=== PATIENT | female | born 1965 | race Caucasian/White ===

== ENCOUNTER 2018-07-19 14:47 | Inpatient (IN) ==
[2018-07-19] MEDS ORDERED: methylPREDNISolone SOD SUC 125 MG/2 ML VIAL IV STA (15:04)
[2018-07-19] MEDS ORDERED: ALBUTEROL NEB SOLN 5 MG/ML 20 ML/BOTTLE RESP TX SCH (15:30)
[2018-07-19 15:41] LABS: Basophils # 0.1 10*3/uL (0.0-0.2); Basophils % 0.8 % (0.0-0.8); Eosinophils # 0.2 10*3/uL (0.0-0.87); Eosinophils % 2.6 % (0.00-10.9); Hematocrit 43.2 VOL% (35.7-47.0); Hemoglobin 14.6 GM/DL (12.0-16.0); Immature Granulocytes % 0.1 %; Immature Granulocytes Absolute 0.01 #; Lymphocytes # 3.4 10*3/uL (1.4-4.0); Lymphocytes % 47.8 % (21.3-54.2); Mean Corpuscular HGB Conc 33.8 GM/DL (32-36); Mean Corpuscular Hemoglobin 36 PG (27-34); Mean Corpuscular Volume 106.4 FL (87-102); Mean Platelet Volume 9.7 FL (9.6-12.0); Monocytes # 0.7 10*3/uL (0.11-0.8); Monocytes % 9.3 % (1.7-12.7); Neutrophils # 2.8 10*3/uL (1.4-7.4); Neutrophils % 39.4 % (38.7-73.9); Platelet Count 250 T/CUMM (130-400); Red Blood Count 4.06 MC/CUMM (3.8-5.5); Red Cell Distribution Width 12.3 % (9.3-17.3); White Blood Count 7.2 T/CUMM (4-12)
[2018-07-19 16:08] LABS: Albumin 4.4 G/DL (3.4-5.0); Bilirubin,Total 0.5 MG/DL (0.2-1.0); Calcium 9.8 MG/DL (8.5-10.1); Osmolality,Calculated 277.5 MOS/KG (273-304); Potassium 3.9 MMOL/L (3.5-5.1); Total Protein 8.3 G/DL (6.4-8.3)
[2018-07-19] MEDS ORDERED: MORPHINE 4 MG/1 ML VIAL IV PRN (19:49)
[2018-07-19] MEDS ORDERED: SODIUM CHLORIDE 0.9% 1,000 ML IV SCH (19:49)
[2018-07-19] MEDS ORDERED: ALBUTEROL 2.5 MG/3 ML NEB RESP TX PRN (19:49)
[2018-07-19] MEDS ORDERED: ONDANSETRON 4 MG/2 ML VIAL IV PRN (19:49)
[2018-07-19] MEDS ORDERED: ACETAMINOPHEN 325 MG TABLET PO PRN (19:49)
[2018-07-19] MEDS: DOCUSATE SODIUM 100 MG CAPSULE PO SCH (20:20)
[2018-07-19] MEDS: ALBUTEROL/IPRATROPIUM 3 ML NEB RESP TX SCH ×2 (20:25→22:34)
[2018-07-19] MEDS ORDERED: ENOXAPARIN 40 MG/0.4 ML SYRINGE SUBCUT SCH (21:00)
[2018-07-19] MEDS ORDERED: ZALEPLON 5 MG CAPSULE PO SCH (21:30)
[2018-07-19] MEDS: methylPREDNISolone SOD SUC 40 MG/1 ML VIAL IV SCH (22:40)
[2018-07-20] MEDS: ALBUTEROL/IPRATROPIUM 3 ML NEB RESP TX SCH ×2 (02:28→08:05)
[2018-07-20] MEDS: methylPREDNISolone SOD SUC 40 MG/1 ML VIAL IV SCH (06:04)
[2018-07-20 06:05] LABS: Hematocrit 37.5 VOL% (35.7-47.0); Hemoglobin 12.9 GM/DL (12.0-16.0); Immature Granulocytes % 0.8 %; Immature Granulocytes Absolute 0.08 #; Lymphocytes # 0.7 10*3/uL (1.4-4.0); Lymphocytes % 6.9 % (21.3-54.2); Mean Corpuscular HGB Conc 34.4 GM/DL (32-36); Mean Corpuscular Hemoglobin 35 PG (27-34); Mean Platelet Volume 10.3 FL (9.6-12.0); Monocytes # 0.2 10*3/uL (0.11-0.8); Monocytes % 1.9 % (1.7-12.7); NRBC # 0.02 10*3/uL; Neutrophils # 9.1 10*3/uL (1.4-7.4); Neutrophils % 90.4 % (38.7-73.9); Platelet Count 233 T/CUMM (130-400); Red Blood Count 3.64 MC/CUMM (3.8-5.5); Red Cell Distribution Width 12.4 % (9.3-17.3)
[2018-07-20 06:28] LABS: Albumin 3.7 G/DL (3.4-5.0); Bilirubin,Total 0.4 MG/DL (0.2-1.0); Calcium 9.4 MG/DL (8.5-10.1); Osmolality,Calculated 283.3 MOS/KG (273-304); Potassium 3.6 MMOL/L (3.5-5.1); Total Protein 7.3 G/DL (6.4-8.3)
[2018-07-20] MEDS: DOCUSATE SODIUM 100 MG CAPSULE PO SCH (08:36)
[2018-07-20] MEDS ORDERED: PANTOPRAZOLE 40 MG TABLET PO SCH (09:00)
[2018-07-20] MEDS ORDERED: Umeclidinium Brm/Vilanterol Tr [Anoro Ellipta] INH SCH (09:00)
[2018-07-20] MEDS ORDERED: PNEUMOCOCCAL VACCINE (23 VALENT) 0.5 ML VIAL IM ONE (09:00)
[2018-07-20 12:10] VITALS: BP 149/72
[2018-07-20] MEDS ORDERED: VERAPAMIL SR 120 MG TABLET PO STA (12:37)
== END 2018-07-20 15:07 | disposition home or self-care (01) | DRG 918 ==
LOC: N.ED 14:47 → N.EDINP 18:19 → N.4E 18:50
PROVIDERS: ADMIT Family Medicine; ATTEND Family Medicine

== ENCOUNTER 2019-05-11 09:28 | Inpatient (IN) ==
[2019-05-11] MEDS ORDERED: ONDANSETRON 4 MG/2 ML VIAL IV STA (09:55)
[2019-05-11] MEDS ORDERED: DICYCLOMINE 20 MG/2 ML AMP IM ONE (09:55)
[2019-05-11] MEDS ORDERED: METOCLOPRAMIDE 10 MG/2 ML VIAL IV STA (09:55)
[2019-05-11] MEDS ORDERED: SODIUM CHLORIDE 0.9% 1,000 ML IV STA (09:55)
[2019-05-11] MEDS ORDERED: metroNIDAZOLE INJ 500 MG in PREMIX 1 EACH IV STA (09:55)
[2019-05-11 11:14] LABS: Apearance,Urine Slightly Hazy (Clear); Bacteria,Urine Occasional /HPF (Few); Bilirubin,Urine Negative (Negative); Blood, Urine Small mg/dL (Negative); Glucose,Urine (UA) Negative (Negative); Ketones,Urine 80 mg/dL (Negative); Mucus,Urine Occasional /LPF (Occasional); Nitrite,Urine Negative (Negative); Protein,Urine 30 MG/DL; RBC,Urine 2 /HPF (0-4); Squamous Epithelial Cell,Urine Few /HPF (0-10); Urine Color Yellow (Yellow); Urine Specific Gravity 1.018 (1.001-1.035); Urine Urobilinogen < 2.0 EU/DL (0.2-1.0); WBC,Urine 2 /HPF (0-6)
[2019-05-11 11:32] LABS: Basophils # 0.1 10*3/uL (0.0-0.2); Basophils % 0.7 % (0.0-0.8); Eosinophils % 0.1 % (0.00-10.9); Hematocrit 43.8 VOL% (35.7-47.0); Hemoglobin 14.6 GM/DL (12.0-16.0); Immature Granulocytes % 0.4 %; Immature Granulocytes Absolute 0.03 #; Lymphocytes # 1.1 10*3/uL (1.4-4.0); Lymphocytes % 14.8 % (21.3-54.2); Mean Corpuscular HGB Conc 33.3 GM/DL (32-36); Mean Corpuscular Volume 105.3 FL (87-102); Mean Platelet Volume 9.5 FL (9.6-12.0); Monocytes % 20.3 % (1.7-12.7); Neutrophils % 63.7 % (38.7-73.9); Platelet Count 186 T/CUMM (130-400); Red Blood Count 4.16 MC/CUMM (3.8-5.5); Red Cell Distribution Width 13.3 % (9.3-17.3); White Blood Count 7.2 T/CUMM (4-12)
[2019-05-11 11:57] LABS: Band Neutrophils 39 % (0-10); Lymphocytes 16 % (20-55); Segmented Neutrophils 34 % (50-85); Total Cells Counted 100
[2019-05-11 11:58] LABS: Anisocytosis Slight; Macrocytosis 1+; Platelet Estimate Normal
[2019-05-11 11:59] LABS: Smudge Cells Few
[2019-05-11 12:10] LABS: Alanine Aminotransferase 71 U/L (13-56); Albumin 3.3 G/DL (3.4-5.0); Alkaline Phosphatase 91 U/L (45-117); Amylase 49 U/L (25-115); Aspartate Amino Transferase 87 U/L (0-37); Bilirubin,Total < 0.39 MG/DL (0.2-1.0); Blood Urea Nitrogen 6 MG/DL (7-18); Calcium 8.8 MG/DL (8.5-10.1); Glucose 79 MG/DL (74-106); Osmolality,Calculated 266.1 MOS/KG (273-304); Total Protein 7.3 G/DL (6.4-8.3); Troponin I < 0.015 NG/ML (0.00-0.045)
[2019-05-11] MEDS ORDERED: ACETAMINOPHEN 500 MG TABLET PO PRN ×2 (13:22→18:04)
[2019-05-11] MEDS ORDERED: VERAPAMIL 120 MG TABLET PO ONE (13:22)
[2019-05-11] MEDS ORDERED: ONDANSETRON 4 MG/2 ML VIAL IV PRN (13:22)
[2019-05-11] MEDS ORDERED: SODIUM CHLORIDE 0.45% 1,000 ML IV SCH (15:00)
[2019-05-11] MEDS: CIPROFLOXACIN INJ 400 MG in PREMIX 1 EACH IV SCH ×2 (15:16→21:55)
[2019-05-11] MEDS: metroNIDAZOLE INJ 500 MG in PREMIX 1 EACH IV SCH ×2 (17:07→23:37)
[2019-05-11] MEDS: SODIUM CHLORIDE 0.9% 1,000 ML IV SCH (17:07)
[2019-05-11] MEDS ORDERED: METOPROLOL TARTRATE 25 MG TABLET PO ONE (17:52)
[2019-05-11] MEDS: ALBUTEROL/IPRATROPIUM 3 ML NEB RESP TX SCH (18:54)
[2019-05-11] MEDS: METOPROLOL TARTRATE 25 MG TABLET PO SCH (20:56)
[2019-05-11] MEDS ORDERED: MONTELUKAST 10 MG TABLET PO SCH (21:00)
[2019-05-11] MEDS: MELATONIN 3 MG TABLET PO SCH (21:55)
[2019-05-12] MEDS: ALBUTEROL/IPRATROPIUM 3 ML NEB RESP TX SCH ×4 (01:08→19:03)
[2019-05-12 04:56] LABS: Basophils % 0.6 % (0.0-0.8); Eosinophils % 0.6 % (0.00-10.9); Hematocrit 37.3 VOL% (35.7-47.0); Hemoglobin 12.3 GM/DL (12.0-16.0); Immature Granulocytes % 0.6 %; Immature Granulocytes Absolute 0.04 #; Lymphocytes # 1.9 10*3/uL (1.4-4.0); Lymphocytes % 29.4 % (21.3-54.2); Mean Corpuscular Volume 106.9 FL (87-102); Mean Platelet Volume 10.2 FL (9.6-12.0); Monocytes % 20.8 % (1.7-12.7); Platelet Count 178 T/CUMM (130-400); Red Blood Count 3.49 MC/CUMM (3.8-5.5); Red Cell Distribution Width 13.3 % (9.3-17.3); White Blood Count 6.4 T/CUMM (4-12)
[2019-05-12] MEDS: metroNIDAZOLE INJ 500 MG in PREMIX 1 EACH IV SCH ×3 (05:11→17:00)
[2019-05-12 05:28] LABS: Albumin 2.7 G/DL (3.4-5.0); Bilirubin,Total 0.4 MG/DL (0.2-1.0); Calcium 8.6 MG/DL (8.5-10.1); Osmolality,Calculated 268.8 MOS/KG (273-304); Total Protein 6.1 G/DL (6.4-8.3)
[2019-05-12 05:47] LABS: Band Neutrophils 2 % (0-10); Eosinophils 4 % (0-10); Lymphocytes 28 % (20-55); Platelet Estimate Normal; Segmented Neutrophils 46 % (50-85); Total Cells Counted 100
[2019-05-12 05:48] LABS: Anisocytosis 3+; Atypical Lymphocytes 1+; Macrocytosis 3+; Microcytosis 1+; Reactive Lymphocytes 1+
[2019-05-12] MEDS: CIPROFLOXACIN INJ 400 MG in PREMIX 1 EACH IV SCH ×3 (06:39→22:00)
[2019-05-12] MEDS ORDERED: Fluticasone Furoate [Arnuity Ellipta] 1 PUFF INH SCH (09:00)
[2019-05-12] MEDS ORDERED: Umeclidinium-Vilanterol [Anoro Ellipta] 1 PUFF INH SCH (09:00)
[2019-05-12] MEDS: MONTELUKAST 10 MG TABLET PO SCH (09:43)
[2019-05-12] MEDS: METOPROLOL TARTRATE 25 MG TABLET PO SCH ×2 (09:43→20:51)
[2019-05-12] MEDS: SODIUM CHLORIDE 0.9% 1,000 ML IV SCH (09:43)
[2019-05-12] MEDS: VERAPAMIL SR 120 MG TABLET PO SCH (09:43)
[2019-05-12] MEDS: Umeclidinium-Vilanterol [Anoro Ellipta] 1 PUFF INH SCH (10:43)
[2019-05-12] MEDS: Fluticasone Furoate [Arnuity Ellipta] 1 PUFF INH SCH (10:44)
[2019-05-12] MEDS ORDERED: MAGNESIUM SULF RIDER 2 GM in PREMIX 1 EACH IV ONE (16:09)
[2019-05-12] MEDS: MELATONIN 3 MG TABLET PO SCH (20:51)
[2019-05-13] MEDS: metroNIDAZOLE INJ 500 MG in PREMIX 1 EACH IV SCH ×5 (00:04→22:53)
[2019-05-13] MEDS: ALBUTEROL/IPRATROPIUM 3 ML NEB RESP TX SCH ×4 (01:24→20:12)
[2019-05-13] MEDS: SODIUM CHLORIDE 0.9% 1,000 ML IV SCH ×2 (01:57→20:09)
[2019-05-13] MEDS: CIPROFLOXACIN INJ 400 MG in PREMIX 1 EACH IV SCH ×2 (06:24→21:24)
[2019-05-13 06:33] LABS: Calcium 8.4 MG/DL (8.5-10.1); Osmolality,Calculated 277.3 MOS/KG (273-304)
[2019-05-13] MEDS: MONTELUKAST 10 MG TABLET PO SCH (09:46)
[2019-05-13] MEDS: Umeclidinium-Vilanterol [Anoro Ellipta] 1 PUFF INH SCH (09:47)
[2019-05-13] MEDS: Fluticasone Furoate [Arnuity Ellipta] 1 PUFF INH SCH (09:47)
[2019-05-13] MEDS: METOPROLOL TARTRATE 25 MG TABLET PO SCH ×2 (09:47→21:30)
[2019-05-13] MEDS: POTASSIUM CHLORIDE 20 MEQ TABLET PO SCH (10:56)
[2019-05-13] MEDS: VERAPAMIL SR 120 MG TABLET PO SCH (10:56)
[2019-05-13] MEDS: MELATONIN 3 MG TABLET PO SCH (21:26)
[2019-05-14] MEDS: ALBUTEROL/IPRATROPIUM 3 ML NEB RESP TX SCH ×3 (00:31→13:00)
[2019-05-14] MEDS: metroNIDAZOLE INJ 500 MG in PREMIX 1 EACH IV SCH ×2 (05:00→10:55)
[2019-05-14 05:13] LABS: Calcium 8.7 MG/DL (8.5-10.1)
[2019-05-14] MEDS: VERAPAMIL SR 120 MG TABLET PO SCH (08:32)
[2019-05-14] MEDS: POTASSIUM CHLORIDE 20 MEQ TABLET PO SCH (08:33)
[2019-05-14] MEDS: METOPROLOL TARTRATE 25 MG TABLET PO SCH (08:33)
[2019-05-14] MEDS: MONTELUKAST 10 MG TABLET PO SCH (08:33)
[2019-05-14] MEDS: CIPROFLOXACIN INJ 400 MG in PREMIX 1 EACH IV SCH (08:34)
[2019-05-14] MEDS: Fluticasone Furoate [Arnuity Ellipta] 1 PUFF INH SCH (08:36)
[2019-05-14] MEDS: Umeclidinium-Vilanterol [Anoro Ellipta] 1 PUFF INH SCH (08:36)
[2019-05-14] MEDS ORDERED: LOPERAMIDE 2 MG CAPSULE PO PRN (08:51)
[2019-05-14] MEDS: SODIUM CHLORIDE 0.9% 1,000 ML IV SCH (10:53)
[2019-05-14 16:11] VITALS: BP 108/71
== END 2019-05-14 16:30 | disposition home or self-care (01) | DRG 372 ==
LOC: N.EDINP 09:28 → N.ED 09:28 → N.2E 14:30
PROVIDERS: ADMIT Family Medicine; ATTEND Family Medicine

== ENCOUNTER 2022-01-24 11:45 | Inpatient (IN) ==
[2022-01-24] MEDS ORDERED: SODIUM CHLORIDE 0.9% 1,000 ML IV STA ×3 (11:53→13:41)
[2022-01-24] MEDS ORDERED: NOREPINEPHRINE 8 MG in SODIUM CHLORIDE 0.9% 242 ML IV PRN (11:56)
[2022-01-24] MEDS: NOREPINEPHRINE 8 MG in SODIUM CHLORIDE 0.9% 242 ML IV PRN ×3 (11:58→23:49)
[2022-01-24 12:15] LABS: Arterial Base Excess iSTAT -28 MMOL/L (-2.5-2.5); Arterial Bicarbonate iSTAT 8.2 MMOL/L (20-26); Arterial O2 Saturation iSTAT 100 % (95-100); Arterial PCO2 iSTAT 61 MM HG (35-48); Arterial PO2 iSTAT 502 MM HG (80-95); Arterial Total CO2 iSTAT 10 MMO/L (23-27); Arterial pH iSTAT 6.732 (7.35-7.45)
[2022-01-24] MEDS ORDERED: SODIUM BICARBONATE 50 MEQ/50 ML VIAL IV ONE ×5 (12:18→18:41)
[2022-01-24 12:23] LABS: Basophils % 0.3 % (0.0-0.8); Eosinophils % 0.1 % (0.00-10.9); Hematocrit 39.4 VOL% (35.7-47.0); Hemoglobin 12.1 GM/DL (12.0-16.0); Immature Granulocytes % 5.9 %; Immature Granulocytes Absolute 0.59 #; Lymphocytes # 3.4 10*3/uL (1.4-4.0); Lymphocytes % 33.5 % (21.3-54.2); Mean Corpuscular HGB Conc 30.7 GM/DL (32-36); Mean Corpuscular Volume 126.3 FL (87-102); Mean Platelet Volume 11.4 FL (9.6-12.0); Monocytes % 5.5 % (1.7-12.7); NRBC # 0.11 10*3/uL; Neutrophils % 54.7 % (38.7-73.9); Platelet Count 121 T/CUMM (130-400); Red Blood Count 3.12 MC/CUMM (3.8-5.5); Red Cell Distribution Width 14.4 % (9.3-17.3); White Blood Count 10.1 T/CUMM (4-12)
[2022-01-24] MEDS ORDERED: SODIUM BICARB INJ 100 MEQ in DEXTROSE 5% 1,000 ML IV SCH (12:30)
[2022-01-24 12:35] LABS: Amorphous Crystals,Urine Occasional /HPF (Few); Bacteria,Urine Occasional /HPF (Few); Hyaline Casts,Urine 53 /LPF (0-3); Mucus,Urine Occasional /LPF (Occasional); RBC,Urine 15-20 /HPF (0-4); Squamous Epithelial Cell,Urine Occasional /HPF (0-10)
[2022-01-24 12:38] LABS: Bilirubin,Urine Large mg/dL (Negative); Blood, Urine Large mg/dL (Negative); Glucose,Urine (UA) Negative (Negative); Ketones,Urine 3+ mg/dL (Negative); Nitrite,Urine Negative (Negative); Protein,Urine 2+ mg/dL (Negative); Urine Appearance Clear (Clear); Urine Color Dark yellow (Yellow); Urine Specific Gravity 1.025 (1.001-1.035); Urine pH 5.5 (4.5-8.0)
[2022-01-24 12:52] LABS: Barbiturates Screen,Urine Negative (Negative); Benzodiazepines Screen,Urine Negative (Negative); Cannabinoid Screen,Urine Negative (Negative); Opiate Screen,Urine Negative (Negative); Phencyclidine Screen,Urine Negative (Negative)
[2022-01-24 12:54] LABS: Band Neutrophils 8 % (0-10); Lymphocytes 24 % (20-55); Metamyelocytes 4 %; Myelocytes 3 %; Nucleated Red Blood Cells 4 (0-5); Segmented Neutrophils 56 % (50-85); Total Cells Counted 100
[2022-01-24 12:59] LABS: Platelet Estimate Adequate
[2022-01-24 13:00] LABS: Anisocytosis 2+; Howell-Jolly Bodies Few; Macrocytosis 2+; Microcytosis Slight; Polychromasia Few
[2022-01-24] MEDS ORDERED: ALBUTEROL 2.5 MG/3 ML NEB RESP TX PRN (13:00)
[2022-01-24] MEDS ORDERED: ACETAMINOPHEN 325 MG TABLET PO PRN (13:00)
[2022-01-24] MEDS ORDERED: ONDANSETRON 4 MG/2 ML VIAL IV PRN (13:00)
[2022-01-24] MEDS ORDERED: MIDAZOLAM 100 MG in SODIUM CHLORIDE 0.9% 80 ML IV PRN (13:00)
[2022-01-24] MEDS ORDERED: PANTOPRAZOLE 40 MG VIAL IV SCH (13:00)
[2022-01-24 13:01] LABS: Basophilic Stippling Few; Bilirubin,Total 2.4 MG/DL (0.20-1.00); Calcium 7.9 MG/DL (8.5-10.1); Osmolality,Calculated 280.1 MOS/KG (273-304); Potassium 4.6 MMOL/L (3.5-5.1); Thyroid Stimulating Hormone 8.64 uIU/ml (0.358-3.74); Total Protein 5.2 G/DL (6.4-8.2)
[2022-01-24 13:04] LABS: Hypochromia Slight
[2022-01-24] MEDS ORDERED: DEXTROSE 50% 25 GM/50 ML VIAL IV STA (13:06)
[2022-01-24 13:09] LABS: INR 1.3; PT Patient Result 14.4 SECS (10.5-12.0)
[2022-01-24] MEDS ORDERED: DEXTROSE 10% 250 ML BAG IV STA (13:12)
[2022-01-24] MEDS ORDERED: cefTRIAXone 1,000 MG VIAL ONE (13:13)
[2022-01-24] MEDS ORDERED: SODIUM CHLORIDE 0.9% 100 ML IV ONE (13:14)
[2022-01-24] MEDS ORDERED: cefTRIAXone 1,000 MG in SODIUM CHLORIDE 0.9% 100 ML IV STA (13:15)
[2022-01-24] MEDS ORDERED: HYDROCORTISONE 100 MG VIAL IV STA (13:17)
[2022-01-24] MEDS: SODIUM BICARB INJ 150 MEQ in DEXTROSE 5% 1,000 ML IV SCH ×4 (13:44→23:35)
[2022-01-24] MEDS ORDERED: SODIUM BICARBONATE 50 MEQ/50 ML VIAL IV STA (14:01)
[2022-01-24 14:06] VITALS: BP 81/51
[2022-01-24] MEDS ORDERED: SODIUM CHLORIDE 0.9% 1,000 ML IV ONE (14:19)
[2022-01-24] MEDS ORDERED: VASOPRESSIN 100 UNITS in SODIUM CHLORIDE 0.9% 95 ML IV PRN (14:21)
[2022-01-24] MEDS ORDERED: GLUCAGON 1 MG VIAL IM PRN (14:22)
[2022-01-24] MEDS ORDERED: fentaNYL INJ 1,250 MCG in SODIUM CHLORIDE 0.9% 225 ML IV PRN (14:43)
[2022-01-24] MEDS ORDERED: NOREPINEPHRINE 16 MG in SODIUM CHLORIDE 0.9% 234 ML IV PRN (14:47)
[2022-01-24] MEDS: PANTOPRAZOLE 40 MG VIAL IV SCH (14:54)
[2022-01-24] MEDS: HYDROCORTISONE 100 MG VIAL IV SCH ×2 (14:54→21:00)
[2022-01-24 14:58] LABS: Albumin 1.2 G/DL (3.4-5.0); Bilirubin,Total 2.4 MG/DL (0.20-1.00); Osmolality,Calculated 305.6 MOS/KG (273-304); Potassium 2.8 MMOL/L (3.5-5.1); Total Protein 3.8 G/DL (6.4-8.2)
[2022-01-24 15:09] LABS: Calcium 5.7 MG/DL (8.5-10.1)
[2022-01-24 15:18] LABS: ABG Base Excess -14.8 MMOL/L (-2.5-2.5); ABG Oxygen Saturation 91.2 % (95-100); ABG PCO2 65.4 MM HG (35-48); ABG PO2 89.8 MM HG (80-95); ABG TCO2 16.5 MMOL/L (23-27)
[2022-01-24 15:22] LABS: ABG PH 7.019 (7.35-7.45)
[2022-01-24] MEDS ORDERED: MAGNESIUM SULF RIDER 2 GM/50 ML PREMIX IV PRN (15:29)
[2022-01-24] MEDS ORDERED: POTASSIUM CHLORIDE RIDER 10 MEQ/100 ML PREMIX IV PRN (15:29)
[2022-01-24] MEDS ORDERED: MAGNESIUM SULF RIDER 4 GM/100 ML PREMIX IV PRN (15:29)
[2022-01-24] MEDS ORDERED: POTASSIUM CHLORIDE RIDER 10 MEQ/100 ML PREMIX IV ONE (15:32)
[2022-01-24] MEDS ORDERED: POTASSIUM CHLORIDE RIDER 20 MEQ/100 ML PREMIX IV ONE ×2 (15:32)
[2022-01-24] MEDS ORDERED: CALCIUM GLUCONATE RIDER 1,000 MG/50 ML PREMIX IV ONE ×2 (15:38→23:31)
[2022-01-24] MEDS: POTASSIUM CHLORIDE RIDER 20 MEQ/100 ML PREMIX IV PRN ×3 (15:41→23:48)
[2022-01-24 15:46] LABS: Albumin 1.3 G/DL (3.4-5.0); Bilirubin,Total 2.8 MG/DL (0.20-1.00); CKMB % 1.6 %; High Sensitive Troponin I* 46.6 ng/L (0-54); Osmolality,Calculated 308.3 MOS/KG (273-304); Total Protein 3.9 G/DL (6.4-8.2)
[2022-01-24 15:50] LABS: Calcium 5.4 MG/DL (8.5-10.1)
[2022-01-24 15:51] LABS: Potassium 2.4 MMOL/L (3.5-5.1)
[2022-01-24] MEDS: LACTULOSE 20 GM/30 ML UDCUP PO SCH ×2 (15:59→21:03)
[2022-01-24] MEDS: THIAMINE INJ 100 MG, FOLIC ACID INJ 1 MG, MULTIVITAMIN INJ 10 ML in SODIUM CHLORIDE 0.4... IV SCH ×2 (16:14→16:21)
[2022-01-24] MEDS ORDERED: fentaNYL 100 MCG/2 ML VIAL IV PRN (17:52)
[2022-01-24] MEDS: NOREPINEPHRINE 16 MG in SODIUM CHLORIDE 0.9% 234 ML IV PRN (17:53)
[2022-01-24] MEDS ORDERED: MEPERIDINE 25 MG/1 ML VIAL IV PRN (18:01)
[2022-01-24] MEDS ORDERED: CISATRACURIUM 200 MG in SODIUM CHLORIDE 0.9% 180 ML IV PRN (18:02)
[2022-01-24 18:39] LABS: ABG Base Excess -14.1 MMOL/L (-2.5-2.5); ABG HCO3 13.6 MMOL/L (20-26); ABG Oxygen Saturation 98.7 % (95-100); ABG PCO2 69.8 MM HG (35-48); ABG TCO2 17.6 MMOL/L (23-27)
[2022-01-24 18:51] LABS: ABG PH 7.023 (7.35-7.45)
[2022-01-24] MEDS: INSULIN REGULAR 100 UNIT/ML IV SCH (20:33)
[2022-01-24] MEDS ORDERED: MINERAL OIL/PETROLATUM OPH OINT 3.5 GM TUBE BOTH EYES SCH (21:00)
[2022-01-24 23:12] LABS: Osmolality,Calculated 301.3 MOS/KG (273-304); Potassium 3.3 MMOL/L (3.5-5.1)
[2022-01-24 23:24] LABS: CKMB % 1.3 %
[2022-01-24 23:26] LABS: High Sensitive Troponin I* 158.9 ng/L (0-54)
[2022-01-25] MEDS: INSULIN REGULAR 100 UNIT/ML IV SCH ×3 (01:41→08:16)
[2022-01-25] MEDS: NOREPINEPHRINE 16 MG in SODIUM CHLORIDE 0.9% 234 ML IV PRN ×2 (01:53→06:29)
[2022-01-25] MEDS: PANTOPRAZOLE 40 MG VIAL IV SCH (02:37)
[2022-01-25 03:46] LABS: ABG Base Excess -24.7 MMOL/L (-2.5-2.5); ABG HCO3 7.6 MMOL/L (20-26); ABG Oxygen Saturation 90.7 % (95-100); ABG PCO2 43.4 MM HG (35-48); ABG PO2 88.6 MM HG (80-95)
[2022-01-25 03:49] LABS: ABG PH 6.863 (7.35-7.45)
[2022-01-25] MEDS ORDERED: SODIUM BICARBONATE 50 MEQ/50 ML VIAL IV ONE ×3 (04:20→06:47)
[2022-01-25 04:28] LABS: Basophils % 0.5 % (0.0-0.8); Hematocrit 30.3 VOL% (35.7-47.0); Hemoglobin 8.9 GM/DL (12.0-16.0); Immature Granulocytes % 22.1 %; Immature Granulocytes Absolute 0.87 #; Lymphocytes % 51.5 % (21.3-54.2); Mean Corpuscular HGB Conc 29.4 GM/DL (32-36); Mean Corpuscular Volume 128.4 FL (87-102); Mean Platelet Volume 12.4 FL (9.6-12.0); Monocytes % 2.5 % (1.7-12.7); NRBC # 0.05 10*3/uL; Neutrophils % 23.4 % (38.7-73.9); Platelet Count 72 T/CUMM (130-400); Red Blood Count 2.36 MC/CUMM (3.8-5.5); Red Cell Distribution Width 14.6 % (9.3-17.3); White Blood Count 3.9 T/CUMM (4-12)
[2022-01-25 04:55] LABS: Bilirubin,Total 2.4 MG/DL (0.20-1.00); Calcium 6.6 MG/DL (8.5-10.1); Osmolality,Calculated 295.8 MOS/KG (273-304); Total Protein 3.2 G/DL (6.4-8.2)
[2022-01-25 05:03] LABS: Folate > 24.00 NG/ML (5.38-24.0); Vitamin B12 1858 PG/ML (211-911)
[2022-01-25 05:19] LABS: Band Neutrophils 3 % (0-10); Lymphocytes 48 % (20-55); Metamyelocytes 5 %; Myelocytes 2 %; Nucleated Red Blood Cells 3 (0-5); Segmented Neutrophils 34 % (50-85); Smudge Cells Few; Total Cells Counted 100
[2022-01-25 05:20] LABS: Macrocytosis 1+; Platelet Estimate Decreased
[2022-01-25] MEDS: SODIUM BICARB INJ 150 MEQ in DEXTROSE 5% 1,000 ML IV SCH (05:20)
[2022-01-25 05:34] LABS: CKMB % 1.3 %
[2022-01-25 05:37] LABS: High Sensitive Troponin I* 247.3 ng/L (0-54)
[2022-01-25] MEDS: HYDROCORTISONE 100 MG VIAL IV SCH (06:03)
[2022-01-25] MEDS ORDERED: INSULIN REGULAR 10 UNIT, CALCIUM GLUCONATE 1,000 MG in DEXTROSE 10% 250 ML IV ONE ×2 (06:46→07:30)
[2022-01-25] MEDS ORDERED: cefTRIAXone 1,000 MG in SODIUM CHLORIDE 0.9% 100 ML IV SCH (14:00)
[2022-01-29] MEDS ORDERED: INFLUENZA VIRUS VACCINE 0.5 ML SYRINGE IM ONE (16:36)
[2022-01-29] MEDS ORDERED: PNEUMOCOCCAL VACCINE (23 VALENT) 0.5 ML VIAL IM ONE (16:36)
== END 2022-01-25 08:43 | disposition expired | DRG 871 ==
LOC: EDUNIT# → N.ED 11:45 → N.EDINP 13:00 → N.ICU 14:09
PROVIDERS: ADMIT Family Medicine; ATTEND Family Medicine